=== PATIENT | female | born 1965 ===

== ENCOUNTER 2025-04-03 08:30 | Outpatient (CLI) | payer BC, SELFPAY | END 2025-04-03 08:31 | disposition home or self-care (01) | LOC: NFLDREF 04-09 12:37 | PROVIDERS: PCP Family Medicine; Visit Provider Family Medicine | DX: Z79.899 Other long term (current) drug therapy (principal) | CPT/HCPCS: 80048; 80061 ==

== ENCOUNTER 2025-04-13 16:15 | Outpatient (CLI) | payer BC, SELFPAY | END 2025-04-13 16:16 | disposition home or self-care (01) | LOC: LKVREF 16:16 | PROVIDERS: PCP Family Medicine; Visit Provider Family Medicine | DX: R53.83 Other fatigue (principal); Z79.899 Other long term (current) drug therapy | CPT/HCPCS: 80076; 84443 ==

== ENCOUNTER 2025-04-21 14:29 | Outpatient (CLI) | payer BC, SELFPAY ==
--- NOTE | 2025-04-21 14:45 | CRLHL7_ITS ---
For Patients: As a result of the Century Cures Act, medical imaging exams and procedure reports are released immediately into your electronic medical record. You may view this report before your referring provider. If you have questions, please contact your health care provider. Indication: other specified soft tissue disorders Technique: Grayscale and color Doppler ultrasound of the right sternoclavicular joint performed in the area of concern. 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 Normal left SC joint. Dictated by Rad Watkins MD @ 04/21/2025 6:40:09 PM (Electronically Signed)
== END 2025-04-21 14:30 | disposition home or self-care (01) ==
LOC: US 14:30
PROVIDERS: PCP Family Medicine; Visit Provider Family Medicine
DX: M79.89 Other specified soft tissue disorders (principal)
CPT/HCPCS: 76536